=== PATIENT | male | born 1940 | race Caucasian/White ===

== ENCOUNTER 2017-09-01 08:33 | Day surgery (SDC) | payer OTHER, BC ==
[~2017-09-01] VITALS: Ht 172.7 cm; Wt 73.0 kg
[~2017-09-01 08:33] MED LIST: ABILIFY2 MG PO; ACTONEL150 MG PO; ADVIL200 MG PO; ALOE VERA JUICE PO; AMLODIPINE BESYL5 MG PO; ASPIRIN81 M1 PO; BACLOFEN20 MG PO; BUSPAR10 MG PO; BUSPAR5 MG PO; CELEBREX200 MG PO; CLONAZEPAM0.5 MG PO; EFFEXOR XR150 MG PO; FENOFIBRATE160 M1 PO; FISH OIL 1,0001 EAC7 PO; FOLIC ACID1 MG PO; FOLVITE1 M1 PO; LACTULOSE10 GM/151 PO; LIPITOR20 MG PO; METAMUCIL POWD822 G1 PO; METHOTREXATE2.5 MG PO; MIRALAX17 GM PO; MIRTAZAPINE30 MG PO; MULTIVITAMIN1 EAC2 PO; PAROXETINE HCL30 MG PO; PAXIL20 MG PO; PAXIL40 MG PO; RANITIDINE HCL300 MG PO; REMERON30 M2 PO; SENNA8.6 MG PO; SEROQUEL100 MG PO; SYNTHROID50 MCG PO; TRAMADOL HCL50 MG PO; TYLENOL EXTRA500 MG PO; VERAPAMIL HCL240 M1 PO
== END 2017-09-01 16:45 | disposition home or self-care (01) ==
LOC: CATH 08:33
DX: I25.10 Atherosclerotic heart disease of native coronary artery without angina pectoris (principal); I10 Essential (primary) hypertension; E78.5 Hyperlipidemia, unspecified; G47.33 Obstructive sleep apnea (adult) (pediatric); F03.90 Unspecified dementia, unspecified severity, without behavioral disturbance, psychotic disturbance, mood disturbance, and anxiety; E03.9 Hypothyroidism, unspecified; M10.9 Gout, unspecified; F32.9 Major depressive disorder, single episode, unspecified; R55 Syncope and collapse; Z79.82 Long term (current) use of aspirin; Z85.46 Personal history of malignant neoplasm of prostate; Z92.3 Personal history of irradiation
CPT/HCPCS: 93005; C1769; C1887; J1644; J2250; J3010